=== PATIENT | male | born 1995 | race Two or more races ===

== ENCOUNTER 2017-06-24 11:08 | Emergency (ER) | payer OTHER ==
[~2017-06-24] VITALS: Ht 165.1 cm; Wt 54.4 kg
[2017-06-24] MEDS ORDERED: NKM (11:22)
[2017-06-24 11:31] VITALS: BP 110/66
[2017-06-24] MEDS ORDERED: DOXYCYCLINE MO100 MG ORAL (12:38)
[2017-06-24] MEDS ORDERED: KEFLEX500 MG ORAL (12:38)
[2017-06-24 12:53] VITALS: BP 116/72
--- NOTE | 2017-06-24 15:08 | Emergency Room Report ---
History of Present Illness General Chief Complaint: Burn/Smoke Inhalation Source: Patient Present Illness HPI 22-year-old male no significant past medical history presenting with swelling to right forearm. Behind elbow. Patient states that something at work spilled on him and burned him, 2 days later and noticed a bump around the area. No fever no chills. States that there is a small wound draining purulent drainage Allergies: Coded Allergies: No Known Allergies (Unverified , 06/24/17) Patient History Past Medical History: see triage record Past Surgical History: none Pertinent Family History: none Reviewed Nursing Documentation: PMH: Agreed, PSxH: Agreed Nursing Documentation-PMH Past Medical History: No Stated History Physical Exam Vital Signs Date Time Temp Pulse Resp B/P (MAP) Pulse Ox O2 Delivery O2 Flow Rate FiO2 06/24/17 11:18 98.1 70 16 116/68 99 Room Air Sp02 EP Interpretation: reviewed, normal General Appearance: normal inspection, well appearing, no apparent distress, alert, GCS 15, non-toxic Head: normocephalic, atraumatic Eyes: bilateral eye normal inspection, bilateral eye PERRL, bilateral eye EOMI ENT: normal ENT inspection, normal pharynx, normal voice, moist mucus membranes Neck: normal inspection, full range of motion, supple Respiratory: normal inspection, lungs clear, normal breath sounds, no respiratory distress, no retraction, no wheezing, speaking full sentences, chest symmetrical Cardiovascular #1: normal inspection, regular rate, rhythm, no edema, normal capillary refill Cardiovascular #2: 2+ radial (R), 2+ radial (L) Gastrointestinal: normal inspection, non tender, soft, non-distended, no guarding Musculoskeletal: back normal, normal range of motion, other - R elbow, small < 2cm abscess, indurated, small puncture wound with slight purulent/bloody drainage Neurologic: normal inspection, alert, oriented x3, responsive, motor strength/ tone normal, sensory intact, normal gait, speech normal Psychiatric: normal inspection, judgement/insight normal, memory normal Skin: normal inspection, normal color, no rash, warm/dry, well hydrated, normal turgor Medical Decision Making Diagnostic Impression: Primary Impression: Abscess Additional Impression: Burn injury ER Course 22-year-old male p/w bump/swelling to right forearm DDX: abscess Plan: Incision and drainage not indicated at this time, abscess to small not fluctuant and already draining, DC home with ABX Disposition: Patient discharged to home with keflex and doxycycline. Patient instructed to follow up in ED or primary care doctor's office to wound recheck in 48 hours without fail. Patient cautioned to return to ED if there is rapid spread of rash, high fever or chills. Patient verbalized understanding and agrees with plan. Please note that this Emergency Department Report was dictated using [employer] technology software, occasionally this can lead to erroneous entry secondary to interpretation by the dictation equipment. Last Vital Signs Date Time Temp Pulse Resp B/P (MAP) Pulse Ox O2 Delivery O2 Flow Rate FiO2 06/24/17 12:53 98.1 70 20 116/72 98 Room Air Disposition: HOME, SELF-CARE Condition: Stable Scripts Doxycycline Monohydrate* (DOXYCYCLINE MONOHYDRATE*) 100 Mg Capsule 100 MG ORAL Q12H for 7 Days, #14 CAP 0 Refills Prov: Kiel Koehler M.D. 06/24/17 Cephalexin* (KEFLEX*) 500 Mg Capsule 500 MG ORAL Q6H for 7 Days, #28 CAP 0 Refills Prov: Kiel Koehler M.D. 06/24/17 Patient Instructions: Abscess Kiel Koehler M.D. Jun 24, 2017 15:08
== END 2017-06-24 12:53 | disposition home or self-care (01) ==
LOC: EMR 11:35
DX: L02.413 Cutaneous abscess of right upper limb (principal); T22.011A Burn of unspecified degree of right forearm, initial encounter; X19.XXXA Contact with other heat and hot substances, initial encounter; Y92.511 Restaurant or cafe as the place of occurrence of the external cause; Y99.0 Civilian activity done for income or pay
CPT/HCPCS: 99284